=== PATIENT | female | born 1990 | race Hispanic/Latino ===

== ENCOUNTER 2018-11-16 09:13 | Outpatient (CLI) | payer OTHER ==
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
== END 2018-11-16 09:14 | disposition home or self-care (01) ==
LOC: BICCT 09:13
PROVIDERS: ATTEND Physician Assistant
DX: V89.2XXA Person injured in unspecified motor-vehicle accident, traffic, initial encounter (principal)
CPT/HCPCS: 70450

== ENCOUNTER 2019-07-05 13:10 | Outpatient (CLI) | payer OTHER ==
--- NOTE | 2019-07-05 13:43 | ULT ---
LEFT BREAST ULTRASOUND: HISTORY: A 29-year-old female with left-sided breast pain at the 10 o'clock position. FINDINGS: Sonographic evaluation of the region of pain at the 10 o'clock position of the right breast, 10 cm fr om the nipple, demonstrates no abnormality. Further evaluation (including biopsy) should be based on clinical findings/suspicion. Return to age- appropriate mammographic screening based on risk factors. POS: OFF
--- NOTE | 2019-07-05 14:37 | ULT ---
TRANSABDOMINAL AND TRANSVAGINAL PELVIC ULTRASOUND WITH GRIMALDO SCALE AND COLOR FLOW AND SPECTRAL DOPPLER IMAGING: HISTORY: A 29-year-old female with right pelvic pain. FINDINGS: Uterus measures 8 x 5 x 6 cm without mass or endometrial fluid. The endometrium measures 16 mm in th ickness. The right ovary measures 4.6 x 2.4 x 3.4 cm and the left ovary measures 3.1 x 1.5 x 2.2 cm. Flow dem onstrated to both ovaries. Nabothian cysts are seen in the cervix. There is a 2.9 x 2.2 x 2.6 cm complex mass arising from the right ovary. A small amount of free flui d is seen in the cul-de-sac. IMPRESSION: Approximately 3 cm complex right ovarian mass. A followup exam is recommended in 8-10 weeks. POS: OFF
== END 2019-07-05 13:11 | disposition home or self-care (01) ==
LOC: BICULT 13:10
PROVIDERS: ATTEND Physician Assistant
DX: N64.4 Mastodynia (principal); R10.2 Pelvic and perineal pain; N83.9 Noninflammatory disorder of ovary, fallopian tube and broad ligament, unspecified
CPT/HCPCS: 76856

== ENCOUNTER 2020-03-15 15:49 | Outpatient (CLI) | payer OTHER ==
[~2020-03-15 15:49] MED LIST: Iopamidol 370 76% 100 ML VIAL ONE
--- NOTE | 2020-03-15 16:41 | CT ---
CT abdomen and pelvis with IV and oral contrast HISTORY: Abdominal pain. FINDINGS: The lung bases are clear. A faintly hyperdense stone is apparent within the dependent porti on of the gallbladder lumen. Solid organs of the abdomen are intact. Biliary system is decompressed. No free air or free fluid. No nspecific lymph nodes scattered about the retroperitoneum. Appendix has a normal appearance. No evidence of bowel obstruction or inflammation. Urinary bladder i s incompletely distended. A 2.7 cm dominant follicle arises from the left ovary. No pathologic mass is evident. IMPRESSION : Cholelithiasis. No evidence of biliary obstruction. No abnormalities are otherwise demonstrated.
== END 2020-03-15 15:50 | disposition home or self-care (01) ==
LOC: BICCT 15:49
PROVIDERS: ATTEND Physician Assistant
DX: R10.11 Right upper quadrant pain (principal); K80.20 Calculus of gallbladder without cholecystitis without obstruction
CPT/HCPCS: 74177; Q9967

== ENCOUNTER 2022-02-27 08:43 | Outpatient (CLI) | payer OTHER | END 2022-02-27 08:44 | disposition home or self-care (01) | LOC: BICMAMMO 08:43 | PROVIDERS: ATTEND Nurse Practitioner Family | DX: N63.10 Unspecified lump in the right breast, unspecified quadrant (principal) | CPT/HCPCS: 77066; G0279 ==